=== PATIENT | male | born 1960 | race Hispanic/Latino ===

== ENCOUNTER 2021-03-03 11:41 | Emergency (ER) | payer SELFPAY ==
[~2021-03-03] VITALS: Ht 167.6 cm; Wt 75.0 kg
[2021-03-03 12:06] VITALS: BP 140/66
== END 2021-03-03 12:42 | disposition home or self-care (01) | DRG 607 ==
LOC: ED 11:41
DX: R21 Rash and other nonspecific skin eruption (principal)